=== PATIENT | female | born 1990 | race Native Hawaiian/Other Pacific Islander ===

== ENCOUNTER 2019-08-10 13:27 | Emergency (ER) | payer OTHER ==
[2019-08-10] MEDS ORDERED: ACETAMINOPHEN 325 MG TAB ONE (14:06)
[2019-08-10 15:06] LABS: RAPID GROUP A STREP NEGATIVE (NEGATIVE)
== END 2019-08-10 15:28 | disposition home or self-care (01) ==
LOC: EDH 13:27
DX: J06.9 Acute upper respiratory infection, unspecified (principal); Z98.890 Other specified postprocedural states
CPT/HCPCS: 87804; 87880

== ENCOUNTER → 2019-09-19 | Outpatient (CLI) | payer OTHER | END | disposition home or self-care (01) | LOC: OIH 11:33 | PROVIDERS: ATTEND Internal Medicine | DX: M19.91 Primary osteoarthritis, unspecified site (principal) ==